=== PATIENT | male | born 1985 | race Caucasian/White ===

== ENCOUNTER 2019-10-31 00:03 | Inpatient (IN) | payer BC, OTHER ==
[2019-10-31] MEDS ORDERED: propofoL 100 ML ONE (00:41)
[2019-10-31] MEDS ORDERED: Etomidate 2 MG/ML 20 ML SDV IVPUSH ONE (00:47)
[2019-10-31] MEDS ORDERED: Diphtheria,Pertussis(Acell),Tetanus Vaccine 0.5 ML Syringe ONE (00:53)
[2019-10-31] MEDS ORDERED: ceFAZolin/Dextrose,Iso-Osmotic 2 GM/50 ML Duplex Bag IV ONE (00:53)
[2019-10-31] MEDS ORDERED: fentaNYL 2500 MCG/50 ML SDV ONE (00:58)
[2019-10-31] MEDS ORDERED: Sodium Chloride 0.9% 250 ML ONE (00:58)
[2019-10-31] MEDS ORDERED: Succinylcholine 200 MG/10 ML MDV ONE ×2 (01:00)
[2019-10-31] MEDS ORDERED: Midazolam 1 MG/ML 5 ML SDV ONE ×2 (01:00)
[2019-10-31] MEDS ORDERED: Propofol 200 MG/20 ML SDV ONE (01:00)
[2019-10-31] MEDS ORDERED: Iopamidol 612 MG/ML 100 ML Bottle IVPUSH ONE (01:00)
[2019-10-31] MEDS ORDERED: Sodium Chloride 0.9% 1,000 ML IV ONE (01:00)
[2019-10-31] MEDS ORDERED: Propofol 1,000 MG/100 ML SDV ONE (01:00)
[2019-10-31] MEDS ORDERED: fentaNYL 100 MCG/2 ML SDV ONE (01:00)
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
[2019-10-31] MEDS ORDERED: fentaNYL 2,500 MCG in Sodium Chloride 0.9% 200 ML IV SCH (01:45)
[2019-10-31] MEDS ORDERED: Lactated Ringers 1,000 ML IV SCH (01:45)
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
[2019-10-31] MEDS ORDERED: Heparin Sodium 5,000 Units/ML Vial SUBCUT SCH ×2 (02:00→12:00)
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
[2019-10-31] MEDS: propofoL 100 ML IV SCH ×4 (02:28→08:36)
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
[2019-10-31] MEDS ORDERED: ceFAZolin 1 GM Vial ONE (07:55)
[2019-10-31] MEDS ORDERED: Lactated Ringers 1,000 ML ONE (07:55)
[2019-10-31] MEDS ORDERED: Ondansetron 4 MG/2 ML SDV ONE (07:55)
[2019-10-31] MEDS ORDERED: fentaNYL 250 MCG/5 ML SDV ONE (07:56)
[2019-10-31] MEDS ORDERED: HYDROmorphone 0.5 MG/0.5 ML Syringe ONE (07:56)
[2019-10-31] MEDS ORDERED: Ketamine 500 mg/10 ML MDV ONE (07:57)
[2019-10-31] MEDS ORDERED: Lactated Ringers 1,000 ML IV ONE (07:59)
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
[2019-10-31] MEDS ORDERED: Midazolam 1 MG/ML 2 ML SDV ONE (08:58)
[2019-10-31] MEDS ORDERED: fentaNYL 100 MCG/2 ML SDV IVPUSH PRN (09:02)
[2019-10-31] MEDS ORDERED: Ondansetron 4 MG/2 ML SDV IVPUSH PRN (09:02)
[2019-10-31] MEDS ORDERED: ePHEDrine 50 MG/ML SDV IVPUSH PRN (09:02)
[2019-10-31] MEDS ORDERED: HYDROmorphone 1 MG/ML Syringe IVPUSH PRN (09:03)
[2019-10-31] MEDS ORDERED: Bupivacaine 0.25% 10 ML SDV ONE (09:13)
[2019-10-31] MEDS ORDERED: Phenylephrine 1 MG in Sodium Chloride 0.9% 10 ML IV PRN (09:15)
--- NOTE | 2019-10-31 10:13 | PCM.POSTAN ---
POST ANESTHESIA ASSESSMENT - MENTAL STATUS Mental Status: Somnolent - VITAL SIGNS Vital Signs: Last Vital Signs Temp 98.5 10/31/19 10:05 Pulse 122 10/31/19 10:05 Resp 10 10/31/19 10:05 BP 159/84 10/31/19 10:05 Pulse Ox 97% 10/31/19 10:05 - RESPIRATORY Respiratory Status: Respiratory Rate WNL, Airway Patent, O2 Saturation Stable, Supplemental Oxygen - CARDIOVASCULAR CV Status: Pulse Rate WNL, Blood Pressure Stable - GASTROINTESTINAL GI Status: No Symptoms - POST OP HYDRATION Hydration Status: Adequate & Stable
--- NOTE | 2019-10-31 10:17 | CR ---
Right forearm: AP and lateral views of the right forearm were obtained. Comparison: No prior study. No acute fracture or other bony abnormality is appreciated. Impression: 1. No abnormality is identified on 2 view right forearm study. Diagnostic code #1 This report was dictated in MDT
--- NOTE | 2019-10-31 10:18 | CR ---
Right ankle: 3 views of the right ankle were obtained. Comparison: No prior right ankle study is available. Comminuted distal fibular fracture is seen. Displacement is noted. Ankle mortise is unstable. Posterior malleolus fracture is also noted. Small avulsion fracture is noted off the inferior tip of the medial malleolus. Diffuse soft tissue swelling is noted. Impression: 1. Ankle fracture as noted above with unstable ankle mortise. Diagnostic code #3 This report was dictated in MDT
--- NOTE | 2019-10-31 10:18 | CR ---
Chest: Portable supine view of the chest was obtained. Comparison: Prior chest CT study performed earlier on the same day (12:24 AM). Heart size and mediastinum are within normal limits. Endotracheal tube is seen with tip lying at the level of the clavicles. Nasogastric tube is seen with tip passing into the area of the stomach. Lungs are clear with no acute parenchymal change. Small nodule is noted within the left upper lung most likely representing a granuloma. No gross bony abnormality is seen. Impression: 1. Tip of endotracheal tube at the level the clavicles. 2. Nasogastric tube with tip lying in the area of the stomach. 3. Nothing acute is otherwise appreciated. Diagnostic code #2 This report was dictated in MDT
--- NOTE | 2019-10-31 10:18 | CR ---
Right femur: AP and lateral views of the right femur were obtained. Comparison: No previous study. Comminuted proximal tibial fracture is seen. No fracture is appreciated within the right femur. Joint effusion is seen. Impression: 1. Comminuted proximal tibial fracture. Joint effusion is seen within the knee. 2. No acute abnormality is seen within the right femur. Diagnostic code #3 This report was dictated in MDT
--- NOTE | 2019-10-31 10:18 | CR ---
Right tibia and fibula: AP and lateral views of the right tibia and fibula were obtained. Comminuted and displaced lateral malleolus fracture is seen. Posterior malleolus fracture is noted. Comminuted proximal tibial fracture is seen which involves the lateral tibial plateau showing displacement. Diffuse soft tissue swelling is seen. Impression: 1. Ankle fractures. 2. Comminuted proximal tibial fracture with extension into the lateral tibial plateau with displacement. 3. Soft tissue swelling. Diagnostic code #3 This report was dictated in MDT
--- NOTE | 2019-10-31 10:24 | CR ---
Right ankle: 4 fluoroscopic spot views of the right ankle were obtained. Previously noted ankle fracture is again noted. Fluoroscopy time is given as 39.0 seconds. Impression: 1. Procedural study. Diagnostic code #2 This report was dictated in MDT
--- NOTE | 2019-10-31 10:26 | PCM48HPAN ---
Post Anesthesia Note - EVALUATION WITHIN 48HRS OF ANESTHETIC Vital Signs in Normal Range: Yes Patient Participated in Evaluation: Yes Respiratory Function Stable: Yes Airway Patent: Yes Cardiovascular Function Stable: Yes Hydration Status Stable: Yes Pain Control Satisfactory: Yes Nausea and Vomiting Control Satisfactory: Yes Mental Status Recovered: Yes Vital Signs: Last Vital Signs Temp 37.1 C 10/31/19 10:00 Pulse 122 H 10/31/19 08:00 Resp 17 10/31/19 08:00 BP 148/98 H 10/31/19 10:00 Pulse Ox 100 10/31/19 10:00
[2019-10-31] MEDS ORDERED: Vancomycin 2 GM in Sodium Chloride 0.9% 500 ML IV ONE (10:30)
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
--- NOTE | 2019-11-01 07:41 | CT ---
CT lumbar spine Technique: Multiple axial sections were obtained through the lumbar spine. Reconstructed coronal and sagittal images were reviewed. Comparison: No prior lumbar spine imaging is available. Findings: Vertebral body heights and disc spaces are preserved. No traumatic disc herniation is seen. No bony central or bony neural foraminal stenosis is noted. No acute fracture or worse abnormal subluxation is seen. Impression: 1. Nothing acute is appreciated on CT study of the lumbar spine Diagnostic code #1 This report was dictated in MDT I agree with preliminary report from [place], finalized on 10/21, 3:24 AM Central Daylight Time [facility]
--- NOTE | 2019-11-01 07:41 | CT ---
CT thoracic spine Technique: Multiple axial sections through the thoracic spine were obtained. Reconstructed coronal and sagittal images were obtained. Findings: Vertebral body heights and disc spaces are maintained. Vertebral bodies and posterior arches are intact. No fracture is appreciated. No bony central or bony neural foraminal stenosis is appreciated. Impression: 1. Nothing acute is identified on CT study of the thoracic spine. Diagnostic code #1 This report was dictated in MDT I agree with preliminary report from [facility], finalized on 10/31/19, 3:24 AM Central Daylight Time [facility]
--- NOTE | 2019-11-01 07:42 | CT ---
CT cervical spine Technique: Multiple axial sections through the cervical spine was obtained. Study was obtained from above C1 inferiorly to the mid T2 level. Reconstructed sagittal and coronal images were obtained. Findings: Diffuse motion artifact is noted. Comparison: No prior cervical spine imaging is available. Findings: Vertebral body heights and disc spaces are maintained. No discrete fracture is appreciated. No bony central or bony neural foraminal stenosis is identified. No abnormal subluxation is seen. Difficult to exclude a small avulsion fracture off the inferior and anterior C2 vertebral body although this is most likely due to motion artifact as no anterior prevertebral soft tissue swelling is present. Impression: 1. Slightly limited details due to motion. 2. Within limitations of motion, no definite acute bony abnormality is appreciated as described above. Diagnostic code #2 This report was dictated in MDT I agree with preliminary report from [facility], finalized on 10/31/19, 2:18 AM Central Daylight Time [facility]
--- NOTE | 2019-11-01 07:43 | CT ---
CT chest Technique: Multiple axial sections were obtained from above the lung apices inferiorly through the lung bases. Intravenous contrast was utilized. Artifact noted from the patient's arms not being above the head. Comparison: No prior chest CT is available. Findings: Thoracic aorta shows normal enhancement. No mediastinal hematoma seen. No adenopathy is noted. No axillary adenopathy is seen. No pericardial fluid is seen. Lungs show no acute parenchymal change. No pulmonary contusion is seen. No pleural effusions are noted. No discrete pneumothorax is appreciated. Bone window settings were reviewed. Motion artifact is seen. Within this limitation, no discrete fracture is appreciated within the visualized osseous structures. Impression: 1. Motion artifact. Within this limitation, nothing acute is definitely appreciated. Diagnostic code #2 This report was dictated in MDT I agree with preliminary report from [facility], finalized on 10/31/19, 2:18 [address] Central [address] Time CT abdomen and pelvis Technique: Multiple axial sections were obtained from above the dome of the diaphragm inferiorly through the pubic symphysis. Intravenous contrast was utilized. No oral contrast has been given. Comparison: No prior abdominal imaging is available. Limitations: Patient's arms are not above his head which causes artifact within the abdomen. Motion artifact is also noted. Findings: Liver contains no focal parenchymal abnormality. Gallbladder contains no calcified gallstones. Spleen appears within normal limits. Adrenal glands show no nodule. Pancreas shows no discrete abnormality. Kidneys show symmetric contrast enhancement without hydronephrosis or mass. Aorta shows no aneurysm. No retroperitoneal adenopathy or mesenteric abnormalities are seen. No pelvic mass or adenopathy is seen. No free fluid or inflammatory change is seen. Appendix not visualized with certainty. Bone window settings were reviewed. No discrete osseous abnormality is appreciated. Impression: 1. Slight artifact as described above. 2. Nothing acute is definitely appreciated on CT study of the abdomen and pelvis. Diagnostic code #2 This report was dictated in MDT I agree with preliminary report from [facility], finalized on 10/31/19, 2:21 AM Central Daylight Time [facility]
--- NOTE | 2019-11-01 07:43 | CT ---
Head CT Technique: Multiple axial sections through the brain were obtained. Intravenous contrast was not utilized. Comparison: No prior intracranial imaging is available. Findings: Significant motion artifact is seen. Within this limitation, no gross evidence of intracranial hemorrhage. No midline shift or mass-effect is seen. Ventricles along with basal cisterns and sulci over the convexities are within normal limits. No discrete calvarial abnormality is appreciated. No definite acute abnormality within the mastoid or paranasal sinuses is seen. Impression: 1. Significant motion artifact. Within this limitation, no gross intracranial abnormality is appreciated. Diagnostic code #2 This report was dictated in MDT I agree with preliminary report from [facility], finalized on 10/31/19, 2:14 AM [employer] Day[employer] [facility]
--- NOTE | 2019-11-01 07:44 | CT ---
CT facial bones Technique: Multiple axial sections through the facial bones were obtained. Reconstructed coronal and sagittal images were obtained. Findings: Motion artifact is noted. No discrete fracture or other facial bone abnormality is appreciated. Paranasal sinuses and mastoid sinuses are clear. Mild nasal septal deviation is seen which appears to be chronic. Impression: 1. Motion artifact. Within this limitation, nothing acute is definitely appreciated on CT facial bone study. Diagnostic code #2 This report was dictated in MDT I agree with preliminary report from [facility], finalized on 10/31/19, 3:20 AM [employer] Day[employer] [facility]
--- NOTE | 2019-11-07 07:04 | PCM.OPNOTE ---
- General Post-Op/Procedure Note Date of Surgery/Procedure: 10/31/19 Operative Procedure(s): irrigation and debridement right tibia with closed reduction of unstable right ankle fracture with splinting and compartment pressure checks Pre Op Diagnosis: right lateral tibial plateau fracture with possible right open ankle fracture Post-Op Diagnosis: closed right tibial plateau fracture with closed right unstable ankle fracture Anesthesia Technique: General ET Tube Primary Surgeon: Chalo Us Anesthesia Provider: Augustina Segundo [employer] Architect: Evie Powers in mLs: 10 Complications: None Condition: Serious
--- NOTE | 2019-11-07 08:03 | OR ---
DATE OF OPERATION: 10/31/2019 SURGEON: Chalo Us MD OPERATION PERFORMED: Irrigation and debridement, right tibia, with closed reduction of unstable right ankle fracture with splinting and compartment pressure checks. PREOPERATIVE DIAGNOSIS: Right lateral tibial plateau fracture with possible right open ankle fracture. POSTOPERATIVE DIAGNOSIS: Closed right tibial plateau fracture with a closed right unstable ankle fracture. ANESTHESIA: General endotracheal intubation. ANESTHESIA PROVIDER: Augustina Segundo CRNA ESTIMATED BLOOD LOSS: 10 mL. COMPLICATIONS: None. CONDITION: Serious. DESCRIPTION OF PROCEDURE: The patient was identified in the preop holding area. Proper site was marked and identified by the surgeon. The patient was taken back to operating theater. Consent was unable to be obtained as there was no family. The patient was intubated from the time of the emergency department. At this time, right lower extremity, there were noted to be 2 lacerations, 1 roughly 10 to 11 cm above the lateral malleolus where there was an ankle fracture and the other one being on the pretibial region more proximally. Both were roughly 1 cm to 1.5 cm in nature. At this time, I did make an incision to open them to roughly about 3 cm. It was noted that the laceration above the ankle fracture did not communicate with it as it was probed significantly. At this time, 3 L normal saline was irrigated through both of the lacerations that were found to be not open fractures. Once this was done, the patient was noted to have somewhat tight compartments secondary to the trauma and nature of injury. I did do compartment pressure checks of the anterior and lateral compartments, but it was within still normal range of delta P with his diastolic pressures, although somewhat elevated compared to normal. At this time, it was decided that the patient secondary to the severity of his injuries as well as how severe the unstable ankle fracture was and the severity of his tibia fracture as well as the high energy of the trauma, the patient would be referred on to a higher level facility. The patient did have a closed reduction done of his unstable ankle fracture with the talus dislocating anteriorly most of the time to the right ankle. We were able to get it reduced in a plaster splint. The patient was sent to recovery and then was transferred to a higher level facility. MMODAL /[id number]
== END 2019-10-31 11:40 | DRG 57 ==
LOC: JD.ED 00:03 → JD.ICU 01:35
PROVIDERS: ADMIT Surgery; ATTEND Surgery
PROC: 0BH17EZ Insertion of Endotracheal Airway into Trachea, Via Natural or Artificial Opening (ICD-10-PCS; principal; 2019-10-31)
PROC: 5A1935Z Respiratory Ventilation, Less than 24 Consecutive Hours (ICD-10-PCS; 2019-10-31)
PROC: 3E0234Z Introduction of Serum, Toxoid and Vaccine into Muscle, Percutaneous Approach (ICD-10-PCS; 2019-10-31)
PROC: 0QSGXZZ Reposition Right Tibia, External Approach (ICD-10-PCS; 2019-10-31)
DX: S06.9X9A Unspecified intracranial injury with loss of consciousness of unspecified duration, initial encounter (principal); S82.201A Unspecified fracture of shaft of right tibia, initial encounter for closed fracture; S82.141A Displaced bicondylar fracture of right tibia, initial encounter for closed fracture; V28.0XXA Motorcycle driver injured in noncollision transport accident in nontraffic accident, initial encounter; Z23 Encounter for immunization; R40.2432 Glasgow coma scale score 3-8, at arrival to emergency department; F10.129 Alcohol abuse with intoxication, unspecified; Y90.7 Blood alcohol level of 200-239 mg/100 ml; Z20.828 Contact with and (suspected) exposure to other viral communicable diseases
CPT/HCPCS: 01480; 36415; 36600; 51702; 70450; 70450-26; 70486; 70486-26; 71045; 71045-26; 71260; 71260-26; 72125; 72125-26; 72128; 72128-26; 72131; 72131-26; 73090-26-RT; 73090-RT; 73552-26-RT; 73552-RT; 73590-26-RT; 73590-RT; 73610-26-RT; 73610-RT; 74177; 74177-26; 76000; 76000-26; 80048; 80053; 80306; 80307; 82150; 82803; 85025; 87641; 90471; 90715; 99285-25; J0330; J0690; J1170; J1644; J2250; J2405; J2704; J3010; J3490; J7030; J7050; J7120; Q9967; U0002

== ENCOUNTER 2023-03-02 13:26 | Emergency (ER) | payer OTHER, BC ==
[2023-03-02 14:49] LABS: BASOPHILS ABSOLUTE AUTO 0.1 K/mm3 (0.0-0.2); BASOPHILS PERCENT AUTO 0.5 % (0.0-1.0); EOSINOPHILS PERCENT AUTO 0.2 % (0.0-6.0); HEMATOCRIT 44.6 % (42.0-52.0); IMMATURE GRAN ABSOLUTE AUTO 0.07 K/mm3 (0.00-0.05); IMMATURE GRAN PERCENT AUTO 0.7 % (0.0-0.4); LYMPHOCYTES ABSOLUTE AUTO 1.1 K/mm3 (1.0-4.8); LYMPHOCYTES PERCENT AUTO 10.8 % (24.0-44.0); MEAN CORPUSCULAR HGB CONC 35.9 g/dl (32.0-36.0); MEAN PLATELET VOLUME 9.3 fl (9.4-12.4); MONOCYTES ABSOLUTE AUTO 0.9 K/mm3 (0.0-0.8); MONOCYTES PERCENT AUTO 8.5 % (0.0-8.0); NEUTROPHILS ABSOLUTE AUTO 7.9 K/mm3 (1.8-7.7); NEUTROPHILS PERCENT AUTO 79.3 % (41.0-71.0); PLATELET COUNT,PLT 210 K/mm3 (150-400); RED BLOOD CELL COUNT 4.85 M/mm3 (4.52-5.90); WHITE BLOOD CELL COUNT,WBC 9.97 K/mm3 (3.9-11.3)
[2023-03-02 15:05] LABS: A/G RATIO 1.1 (1-2); ALBUMIN 4.1 g/dl (3.4-5.0); ANION GAP 19.3 (5-15); BILIRUBIN TOTAL 0.5 mg/dL (0.2-1.0); BUN/CREATININE RATIO 10.8 (14-18); CALCIUM 9.2 mg/dL (8.5-10.1); CREATININE 1.2 mg/dL (0.7-1.3); EST CRCL DRUG DOSING (CG) 97.1 mL/min; POTASSIUM,K 3.3 mEq/L (3.5-5.1); PROTEIN TOTAL,TP 7.7 g/dl (6.4-8.2)
[2023-03-02] MEDS ORDERED: Ketorolac 15 MG/ML SDV IVPUSH ONE (16:24)
[2023-03-02] MEDS ORDERED: Sodium Chloride 0.9% 1,000 ML IV ONE (16:25)
== END 2023-03-02 17:40 | disposition left against medical advice (07) ==
LOC: JD.ED 13:26
DX: R55 Syncope and collapse (principal); R00.0 Tachycardia, unspecified; R03.0 Elevated blood-pressure reading, without diagnosis of hypertension; M25.511 Pain in right shoulder; F17.210 Nicotine dependence, cigarettes, uncomplicated
CPT/HCPCS: 36415; 70450; 70450-26; 73030-26-RT; 73030-RT; 80053; 84484; 85025; 93010; 99284; 99285